=== PATIENT | female | born 1995 | race Two or more races ===

== ENCOUNTER 2018-12-04 18:34 | Inpatient (IN) | payer OTHER, MEDICAID ==
[~2018-12-04] VITALS: Ht 160 cm; Wt 69.0 kg
[2018-12-04 20:03] LABS: CLUE CELLS NONE SEEN (NONE SEEN); WET PREP WBCS MANY (FEW)
[2018-12-04 20:16] LABS: MICROSCOPIC AUTO
[2018-12-04] MEDS ORDERED: OXYTOCIN 30U/ 0.9% NaCL 500ML 500 ML ONE (20:51)
[2018-12-04 20:52] LABS: MEAN CORPUSCULAR HGB CONC 33.4 g/dL (32.4-35.8); MEAN CORPUSCULAR VOLUME 92.6 fL (80-100); MEAN PLATELET VOLUME 8.6 fL (7.4-10.4); PLATELET COUNT 195 x10^3/uL (130-400); RED BLOOD COUNT 3.81 x10^6/uL (3.82-5.3); RED CELL DISTRIBUTION WIDTH 13.7 % (9.6-15.2)
[2018-12-04 20:54] LABS: MD YES
[2018-12-04] MEDS ORDERED: OXYTOCIN 30U/ 0.9% NaCL 500ML 500 ML IV PRN (21:13)
[2018-12-04] MEDS ORDERED: LACTATED RINGERS 1,000 ML IV SCH (21:13)
[2018-12-04] MEDS ORDERED: D5%-LACTATED RINGERS 1,000 ML IV SCH (21:13)
[2018-12-04] MEDS ORDERED: OXYTOCIN 30U/ 0.9% NaCL 500ML 500 ML IV ONE (21:13)
[2018-12-04] MEDS ORDERED: FENTANYL PF 100 MCG/2ML ONE ×2 (21:19→22:53)
[2018-12-04] MEDS: PLEASE ENTER HEIGHT AND WEIGHT MC SCH (21:30)
[2018-12-04] MEDS ORDERED: RHOGAM FROM BLOOD BANK 1 NOTE EA IM/IV PRN (21:30)
[2018-12-04] MEDS ORDERED: FENTANYL PF 100 MCG/2ML IVPush PRN (21:30)
[2018-12-04] MEDS ORDERED: ONDANSETRON 2MG/ML, 2ML IVPush PRN (21:30)
[2018-12-04] MEDS ORDERED: CALCIUM CARBONATE 500 MG TAB.CHEW PO PRN (21:30)
[2018-12-04] MEDS: FENTANYL PF 100 MCG/2ML IVPush PRN ×2 (21:33→23:01)
[2018-12-04 21:37] LABS: BAND#(MANUAL) 0.92 x10^3/uL; BANDS%(MANUAL) 4 % (0-7); LYMPH#(MANUAL) 1.38 x10^3/uL (1-3.4); LYMPHS% (MANUAL) 6 % (22-44); MONOS#(MANUAL) 1.38 x10^3/uL (0.3-2.7); MONOS% (MANUAL) 6 % (2-9); SEG#(MANUAL) 19.32 x10^3/uL (1.8-6.8); SEGS% (MANUAL) 84 % (42-75)
[2018-12-04 21:39] LABS: <PLATELET ESTIMATE> ADEQUATE; <PLT MORPHOLOGY> NORMAL PLT MORPH; <RBC MORPHOLOGY> NORMAL
[2018-12-05] MEDS ORDERED: FENTANYL PF 100 MCG/2ML ONE (00:39)
[2018-12-05] MEDS: FENTANYL PF 100 MCG/2ML IVPush PRN (00:41)
[2018-12-05] MEDS ORDERED: AMPICILLIN 2 GM in SODIUM CHLORIDE 0.9% 100 ML IV ONE (01:00)
[2018-12-05] MEDS ORDERED: MISOPROSTOL 100 MCG TABLET PO SCH (01:00)
[2018-12-05] MEDS ORDERED: ACETAMINOPHEN 500 MG TABLET PO ONE (01:00)
[2018-12-05] MEDS ORDERED: GENTAMICIN PER PHARMACY MC PRN (01:00)
[2018-12-05] MEDS ORDERED: ACETAMINOPHEN 500 MG TABLET ONE (01:17)
[2018-12-05] MEDS ORDERED: MISOPROSTOL 200 MCG TABLET ONE (01:17)
[2018-12-05] MEDS ORDERED: PHARMACOKINETIC CONSULTATION MC ONE (01:30)
[2018-12-05] MEDS ORDERED: PHARMACOKINETIC MONITORING MC PRN (01:30)
[2018-12-05 01:37] LABS: CREATININE 0.59 mg/dL (0.55-1.02)
[2018-12-05] MEDS ORDERED: BUPIVACAINE 0.25% ONE (01:39)
[2018-12-05] MEDS: GENTAMICIN 340 MG in SODIUM CHLORIDE 0.9% 100 ML IV SCH (02:03)
[2018-12-05] MEDS ORDERED: FENTANYL/BUPIV./NS/PF 250 ML EPIDCONT SCH (02:07)
[2018-12-05] MEDS ORDERED: LACTATED RINGERS 1,000 ML IVBOLUS PRN (02:30)
[2018-12-05] MEDS ORDERED: EPHEDRINE 50 MG/ML, 1ML IVPush PRN (02:30)
[2018-12-05] MEDS ORDERED: ONDANSETRON 2MG/ML, 2ML ONE (03:06)
[2018-12-05 04:28] LABS: AMPHETAMINE SCREEN, URINE Negative (Negative); BARBITURATE SCREEN, URINE Negative (Negative); BENZODIAZEPINE SCREEN, URINE Negative (Negative); CANNABINOID SCREEN, URINE Negative (Negative); COCAINE SCREEN, URINE Negative (Negative); METHADONE SCREEN, URINE Negative (Negative); OPIATE SCREEN, URINE Negative (Negative)
[2018-12-05] MEDS: AMPICILLIN 1 GM in SODIUM CHLORIDE 0.9% 100 ML IV SCH ×5 (05:29→21:28)
[2018-12-05] MEDS: PLEASE ENTER HEIGHT AND WEIGHT MC SCH ×2 (05:30→13:30)
[2018-12-05] MEDS: OXYTOCIN 30U/ 0.9% NaCL 500ML 500 ML IV SCH ×2 (06:44→16:44)
[2018-12-05] MEDS ORDERED: ACETAMINOPHEN 325 MG TABLET PO PRN (07:00)
[2018-12-05] MEDS ORDERED: DOCUSATE 100 MG CAPSULE PO PRN (07:00)
[2018-12-05] MEDS ORDERED: METOCLOPRAMIDE 5 MG/ML, 2ML IV PRN (07:00)
[2018-12-05] MEDS ORDERED: ONDANSETRON 2MG/ML, 2ML IV PRN (07:00)
[2018-12-05] MEDS ORDERED: IBUPROFEN 600 MG TABLET PO PRN (07:00)
[2018-12-05] MEDS ORDERED: BISACODYL 10 MG SUPP PR PRN (07:00)
[2018-12-05] MEDS ORDERED: GLYCERIN ADULT SUPP PR PRN (07:00)
[2018-12-05] MEDS ORDERED: IBUPROFEN 800 MG TABLET PO PRN (07:00)
[2018-12-05] MEDS ORDERED: OXYcodone/APAP 5/325MG TABLET PO PRN ×2 (07:00)
[2018-12-05] MEDS ORDERED: CARBOPROST TROMETHAMINE 250 MCG/ML, 1ML IM PRN (07:00)
[2018-12-05] MEDS ORDERED: METHYLERGONOVINE 0.2 MG/ML IM PRN (07:00)
[2018-12-05 08:12] VITALS: BP 100/58
[2018-12-05] MEDS ORDERED: PRENATAL VIT/IRON/FA 1 EACH TABLET PO SCH (09:00)
[2018-12-05] MEDS: LACTATED RINGERS 1,000 ML IV SCH ×3 (10:07→23:01)
[2018-12-05] MEDS ORDERED: IBUPROFEN 600 MG TABLET ONE (15:22)
[2018-12-06] MEDS: AMPICILLIN 1 GM in SODIUM CHLORIDE 0.9% 100 ML IV SCH ×3 (00:56→05:02)
[2018-12-06] MEDS: GENTAMICIN 340 MG in SODIUM CHLORIDE 0.9% 100 ML IV SCH (02:12)
[2018-12-06 05:55] LABS: BASOPHILS # (AUTO) 0.02 x10^3/uL (0-0.1); BASOPHILS % (AUTO) 0 % (0-1); EOSINOPHILS # (AUTO) 0.17 x10^3/uL (0-0.4); EOSINOPHILS % (AUTO) 2 % (1-7); LYMPHOCYTES # (AUTO) 1.23 x10^3/uL (1-3.4); LYMPHOCYTES % (AUTO) 12 % (22-44); MD NO; MEAN CORPUSCULAR HEMOGLOBIN 30.2 pg (27.0-34.8); MEAN CORPUSCULAR HGB CONC 32.8 g/dL (32.4-35.8); MEAN PLATELET VOLUME 8.3 fL (7.4-10.4); MONOCYTES # (AUTO) 0.57 x10^3/uL (0.2-0.8); MONOCYTES % (AUTO) 6 % (2-9); NEUTROPHILS # (AUTO) 8.16 x10^3/uL (1.8-6.8); NEUTROPHILS % (AUTO) 80 % (42-75); PLATELET COUNT 161 x10^3/uL (130-400); RED BLOOD COUNT 3.41 x10^6/uL (3.82-5.3); RED CELL DISTRIBUTION WIDTH 13.9 % (9.6-15.2)
== END 2018-12-06 09:00 | disposition home or self-care (01) | DRG 805 ==
LOC: LDOP 18:34 → LDIP 20:15
PROVIDERS: ADMIT Obstetrics & Gynecology Maternal & Fetal Medicine; ATTEND Obstetrics & Gynecology Maternal & Fetal Medicine
PROC: 10E0XZZ Delivery of Products of Conception, External Approach (ICD-10-PCS; principal; 2018-12-05)
PROC: 3E0R3BZ Introduction of Anesthetic Agent into Spinal Canal, Percutaneous Approach (ICD-10-PCS; 2018-12-05)
PROC: 00HU33Z Insertion of Infusion Device into Spinal Canal, Percutaneous Approach (ICD-10-PCS; 2018-12-05)
DX: O60.12X0 Preterm labor second trimester with preterm delivery second trimester, not applicable or unspecified (principal); O41.1220 Chorioamnionitis, second trimester, not applicable or unspecified; Z37.0 Single live birth; O99.42 Diseases of the circulatory system complicating childbirth; O75.2 Pyrexia during labor, not elsewhere classified; O42.012 Preterm premature rupture of membranes, onset of labor within 24 hours of rupture, second trimester; O32.1XX0 Maternal care for breech presentation, not applicable or unspecified; O77.0 Labor and delivery complicated by meconium in amniotic fluid; R00.0 Tachycardia, unspecified; Z3A.22 22 weeks gestation of pregnancy; Z83.3 Family history of diabetes mellitus
CPT/HCPCS: 36415; 76815; 80170; 80307; 81001; 82565; 85025; 86850; 86900; 87086; 87147; 87210; 87491; 87591; 87808; 88305; 89060; G0378; J0290; J2405; J3010; J1580; J2590; J7120; Q0114